=== PATIENT | female | born 1965 | race Asian ===

== ENCOUNTER → 2017-03-21 | Outpatient (CLI) | payer BC | END | disposition home or self-care (01) | LOC: MAMMO 10:21 | PROVIDERS: ATTEND Family Medicine | DX: Z12.31 Encounter for screening mammogram for malignant neoplasm of breast (principal) | CPT/HCPCS: G0202 ==

== ENCOUNTER → 2019-04-23 | Outpatient (CLI) | payer BC | END | disposition home or self-care (01) | LOC: MAMMO 08:57 | PROVIDERS: ATTEND Family Medicine | DX: Z12.31 Encounter for screening mammogram for malignant neoplasm of breast (principal); N64.89 Other specified disorders of breast | CPT/HCPCS: 77067 ==

== ENCOUNTER → 2020-05-24 | Outpatient (CLI) | payer BC | END | disposition home or self-care (01) | LOC: LAB 10:15 | PROVIDERS: ATTEND Family Medicine | DX: Z00.00 Encounter for general adult medical examination without abnormal findings (principal); Z20.822 Contact with and (suspected) exposure to COVID-19 | CPT/HCPCS: 87426 ==

== ENCOUNTER → 2020-05-25 | Outpatient (CLI) | payer BC | END | disposition home or self-care (01) | LOC: MAMMO 08:54 | PROVIDERS: ATTEND Family Medicine | DX: Z12.31 Encounter for screening mammogram for malignant neoplasm of breast (principal); N64.89 Other specified disorders of breast | CPT/HCPCS: 77067 ==

== ENCOUNTER → 2021-07-12 | Outpatient (CLI) | payer BC | END | disposition home or self-care (01) | LOC: MAMMO 08:05 | PROVIDERS: ATTEND Family Medicine | DX: Z12.31 Encounter for screening mammogram for malignant neoplasm of breast (principal) | CPT/HCPCS: 77067 ==

== ENCOUNTER → 2022-10-31 | Outpatient (CLI) | payer BC | END | disposition home or self-care (01) | LOC: MAMMO 07:45 | PROVIDERS: ATTEND Family Medicine | DX: Z12.31 Encounter for screening mammogram for malignant neoplasm of breast (principal) | CPT/HCPCS: 77067 ==